=== PATIENT | female | born 1980 | race Caucasian/White ===

== ENCOUNTER 2017-01-26 19:38 | Emergency (ER) | payer MEDICAID ==
[2017-01-26 20:46] LABS: BASOPHIL# 0.2 X 10^3uL (0.0-0.1); BASOPHILS 1.9 % (0.0-2.0); EOSINOPHILS 1.9 % (0.0-6.0); EOSINOPHILS# 0.2 X 10^3uL (0.0-0.4); HEMATOCRIT 42.1 % (36.0-48.0); HEMOGLOBIN 14.5 g/dL (12.0-16.0); LYMPHOCYTES 23.4 % (20.0-40.0); LYMPHOCYTES# 2.5 X 10^3uL (0.8-3.8); MEAN CELL VOLUME 74.8 fL (80.0-100.0); MEAN CORPUS. HGB CONCENTRATION 34.5 g/dL (32.0-36.0); MEAN CORPUSCULAR HEMOGLOBIN 25.8 pg (29.0-35.0); MEAN PLATELET VOLUME 8.4 fL (7.4-10.4); MONOCYTES 3.4 % (2.0-10.0); MONOCYTES# 0.4 X 10^3uL (0.2-1.0); NEUTROPHILS 69.4 % (54.0-75.0); NEUTROPHILS# 7.4 X 10^3uL (2.6-6.7); PLATELET COUNT 271 X 10^3uL (130-440); RED BLOOD COUNT 5.62 X 10^6uL (4.20-6.10); RED CELL DISTRIBUTION WIDTH 13.2 % (11.5-14.5); WHITE BLOOD COUNT 10.7 X 10^3uL (3.9-10.7)
[2017-01-26] MEDS ORDERED: HYDROcodone/APAP 5/325 MG 1 TAB TABLET PO ONE (20:49)
[2017-01-26 21:00] LABS: BLOOD UREA NITROGEN 29 mg/dL (7-17); C-REACTIVE PROTEIN 7.9 mg/L (<10.0); CALCIUM 8.6 mg/dL (8.4-10.2); CHLORIDE 106 mmol/L (98-107); CREATININE 1.7 mg/dL (0.5-1.0); EST GLOMERULAR FILTRATION RATE 37 mL/min; GLUCOSE 138 mg/dL (70-100); POTASSIUM 3.6 mmol/L (3.5-5.1); SODIUM 143 mmol/L (137-145)
[2017-01-26 21:09] LABS: TROPONIN I < 0.012 ng/mL (0.00-0.034)
--- NOTE | 2017-01-26 22:13 | ER PHYSICIAN DOCUMENTATION ---
Physician Documentation [facility] Name:Yanci Carranza Age:36 yrs Sex:Female :1980 Arrival Date:01/26/2017 Time:19:38 Bed2 Private MD: Irvin Jung Disposition: 01/26/17 21:27 Discharged to Home/Self Care. Impression: Jaw Pain. - Condition is Fair. - Discharge Instructions: ABSCESS Dental - DENTAL ABSCESS. - Prescriptions for penicillin V potassium 500 mg Oral tablet - take 1 tablet by ORAL route 3 times per day for 10 days; 30 tablet. Hydrocodone- Acetaminophen 5-325 mg Oral Tablet - take 1 tablet by ORAL route every 6 hours As needed; 20 tablet. - Medical Reconciliation form form. - Follow up: Private Physician; When: 2 - 3 days; Reason: Recheck today's complaints, Continuance of care. - Problem is new. - Symptoms have improved. HPI: 01/26 21:22 This 36 yrs old Female presents to ER via Walk In with complaints of Jaw Pain sc - RIGHT SIDE. 21:22 The patient presents with pain, that is acute. The problem is located in the right jaw. sc 21:24 Onset: The symptom(s)/episode began/occurred 10 day(s) ago. Duration: The symptoms are sc continuous. Modifying factors: The symptoms are alleviated by over the counter medications, NSAIDs. Associated signs and symptoms: The patient has no apparent associated signs or symptoms. Severity of symptoms: At their worst the symptoms were moderate. Historical: - Allergies: No known drug Allergies; - PMHx: GERD; - Tetanus: < 10 years. - Ebola Screening: : Patient negative for fever greater than or equal to 101.5 degrees Fahrenheit, and additional compatible Ebola Virus Disease symptoms. Patient denies exposure to infectious person. Patient denies travel to an Ebola-affected area in the 21 days before illness onset. No symptoms or risks identified at this time. . - Immunization history: Flu Vaccine < 1 year. - Social history: Smoking status: Patient states was never smoker of tobacco. ROS: 21:24 Constitutional: Negative for fever, chills, and weight loss. sc Eyes: Negative for injury, pain, redness, and discharge. Neck: Negative for injury, pain, and swelling. Cardiovascular: Negative for chest pain, palpitations, and edema. Respiratory: Negative for shortness of breath, cough, wheezing, and pleuritic chest pain. Abdomen/GI: Negative for abdominal pain, nausea, vomiting, diarrhea, and constipation. Back: Negative for injury and pain. MS/Extremity: Negative for injury and deformity. Skin: Negative for injury, rash, and discoloration. 21:24 Neuro: Negative for headache, weakness, numbness, tingling, and seizure. sc 21:24 ENT: Positive for Negative for injury or acute deformity. Exam: Constitutional: This is a well developed, well nourished patient who is awake, alert, and in no acute distress. Head/Face: Normocephalic, atraumatic. Eyes: Pupils equal round and reactive to light, extra-ocular motions intact. Lids and lashes normal. Conjunctiva and sclera are non-icteric and not injected. Cornea within normal limits. Periorbital areas with no swelling, redness, or edema. Chest/axilla: Normal chest wall appearance and motion. Nontender with no deformity. No lesions are appreciated. Cardiovascular: Regular rate and rhythm with a normal S1 and S2. No gallops, murmurs, or rubs. Normal PMI, no JVD. No pulse deficits. Respiratory: Lungs have equal breath sounds bilaterally, clear to auscultation and percussion. No rales, rhonchi or wheezes noted. No increased work of breathing, no retractions or nasal flaring. Abdomen/GI: Soft, non-tender, with normal bowel sounds. No distension or tympany. No guarding or rebound. No evidence of tenderness throughout. 21:25 Back: No spinal tenderness. No costovertebral tenderness. Full range of motion. sc 21:25 ENT: Mouth: is normal, Dental exam: normal, no acute changes, dental caries, that is mild, diffusely, right brenda nt to palp, tmj nl, pain at angle, deep bone pain at times. Vital Signs: 19:47 BP 157 / 100; Pulse 92; Resp 19; Temp 98; Pulse Ox 96% on R/A; Weight 90.72 kg (R); bw2 Height 5 ft. 5 in. (165.10 cm); Pain 2/10; 19:47 Body Mass Index 33.28 (90.72 kg, 165.10 cm) bw2 MDM: 19:56 Patient medically screened. mt 21:25 Differential diagnosis: dental caries, dental abscess, pericoronitis. Data reviewed: mt vital signs, nurses notes, lab test result(s), and as a result, I will discharge patient. Counseling: I had a detailed discussion with the patient and/or guardian regarding: the historical points, exam findings, and any diagnostic results supporting the discharge/admit diagnosis, lab results, the need for outpatient follow up, for a referral to a specialist, rec dental x-rays next to rule out deep dental abscess. 01/26 20:57 Order name: CBC AUTO DIF, MDIF/RMOR IF IND; Complete Time: 21:13 EDNY 01/26 21:12 Interpretation: Normal Except: MEAN CELL VOLUME 74.8. mt 01/26 21:10 Order name: BASIC METABOLIC PANEL; Complete Time: 21:13 EDNY 01/26 21:13 Interpretation: Abnormal: BLOOD UREA NITROGEN 29; CREATININE 1.7. mt 01/26 21:10 Order name: C-REACTIVE PROTEIN; Complete Time: 21:13 EDNY 01/26 21:13 Interpretation: Normal. mt 01/26 21:10 Order name: TROPONIN I; Complete Time: 21:13 EDNY 01/26 21:13 Interpretation: Normal. mt Dispensed Medications: 20:37 Drug: HYDROcodone-acetaminophen 5 mg-325 mg 1 tabs; Route: PO; bw2 20:45 Follow up: Response: Pain is decreased 2 Signatures: Irvin Justin MD MD mt marilu flores Beth bw2
--- NOTE | 2017-01-26 22:13 | ER NURSING DOCUMENTATION ---
Nurse's Notes [facility] Name:Yanci Carranza Age:36 yrs Sex:Female :1980 Arrival Date:01/26/2017 Time:19:38 Bed2 Private MD: Diagnosis:Jaw Pain Presentation: 01/26 19:44 Presenting complaint: Patient states: right sided jaw pain x 1 week. pt states her jaw bw2 is also popping. skin is nor tender to the touch. Transition of care: patient was not received from another setting of care. 19:44 Acuity: JORGE 4 bw2 19:44 Method Of Arrival: Walk In 2 20:41 Acuity: OJRGE 3 bw2 Triage Assessment: 19:47 General: Appears in no apparent distress, Behavior is appropriate for age. Pain: bw2 Complains of pain in right side jaw. Historical: - Allergies: No known drug Allergies; - PMHx: GERD; - Tetanus: < 10 years. - Ebola Screening: : Patient negative for fever greater than or equal to 101.5 degrees Fahrenheit, and additional compatible Ebola Virus Disease symptoms. Patient denies exposure to infectious person. Patient denies travel to an Ebola-affected area in the 21 days before illness onset. No symptoms or risks identified at this time. . - Immunization history: Flu Vaccine < 1 year. - Social history: Smoking status: Patient states was never smoker of tobacco. Screenin:58 Infectious Disease Risk None. Abuse screen: Denies threats or abuse. Denies injuries bw2 from another. Nutritional screening: No deficits noted. Assessment: 19:58 See Triage Assessment done by same RN. bw2 Vital Signs: 19:47 BP 157 / 100; Pulse 92; Resp 19; Temp 98; Pulse Ox 96% on R/A; Weight 90.72 kg (R); bw2 Height 5 ft. 5 in. (165.10 cm); Pain 2/10; 19:47 Body Mass Index 33.28 (90.72 kg, 165.10 cm) bw2 ED Course: 19:38 Patient arrived in ED. jt 19:44 Talisha Paul is Primary Nurse. bw2 19:45 Triage completed. bw2 19:56 Irvin Justin MD is Attending Physician. sc 19:59 Valuables Remains with patient. bw2 Administered Medications: 20:37 Drug: HYDROcodone-acetaminophen 5 mg-325 mg 1 tabs; Route: PO; bw2 20:45 Follow up: Response: Pain is decreased bw2 Outcome: 21:27 Discharge ordered by . osvaldo 22:12 Discharged to home mv 22:12 Condition: good 22:12 Discharge Assessment: Patient awake, alert and oriented x 3. No cognitive and/or functional deficits noted. Patient verbalized understanding of disposition instructions. 22:12 Discharge instructions given to patient, Instructed on discharge instructions, follow up and referral plans. medication usage, no drinking with medication, Demonstrated understanding of Prescriptions given X 2. 22:13 Patient left the ED. mv Signatures: Irvin Justin MD MD sc Tennant, Joanne jt vogel, margaux mv Wisely, Beth bw2
[2017-01-26] MEDS ORDERED: HEPARIN SOD PORCINE 5,000 UNITS/ML VIAL ONE (22:21)
== END 2017-01-26 22:13 | disposition home or self-care (01) ==
LOC: ER 19:38
DX: R68.84 Jaw pain (principal); K02.9 Dental caries, unspecified
CPT/HCPCS: 80048; 84484; 85025; 86140; 99283; J1644

== ENCOUNTER 2017-03-14 14:42 | Emergency (ER) | payer MEDICAID ==
[2017-03-14] MEDS ORDERED: LIDOCAINE/EPI 2% 1:200,000 10 ML VIAL ONE (15:12)
[2017-03-14] MEDS ORDERED: INDOMETHACIN 25 MG CAPSULE PO ONE (15:51)
[2017-03-14 15:58] LABS: CRYSTAL IDENTIFICATION NONE SEEN (NONE SEEN)
[2017-03-14 16:09] LABS: FLUID COLOR TUBE 1 PINK (COLORLESS)
--- NOTE | 2017-03-14 16:27 | ER NURSING DOCUMENTATION ---
Nurse's Notes [facility] Name:Yanci Carranza Age:36 yrs Sex:Female :1980 Arrival Date:03/14/2017 Time:14:42 Bed6 Private MD: Diagnosis:Gout Presentation: 03/14 14:48 Acuity: JORGE 3 tg 15:15 Presenting complaint: Patient states: Pain in right knee, began yesterday. No trauma. tg Transition of care: patient was not received from another setting of care. 15:15 Method Of Arrival: Private Vehicle tg Triage Assessment: 15:07 General: Appears in no apparent distress, Behavior is cooperative, pleasant. Pain: tg Complains of pain in right knee. Cardiovascular: Capillary refill < 3 seconds in right toes. Respiratory: Respiratory effort is even, unlabored. Derm: Skin is pink, warm & dry. Musculoskeletal: Range of motion intact in all extremities. right knee is warm, reddened. Historical: - Allergies: No known drug Allergies; - Home Meds: 1. None - PMHx: polycistic kidney disease; GOUT; - PSHx: bunions; - Tetanus: unknown. - Ebola Screening: : Patient negative for fever greater than or equal to 101.5 degrees Fahrenheit, and additional compatible Ebola Virus Disease symptoms. Patient denies exposure to infectious person. Patient denies travel to an Ebola-affected area in the 21 days before illness onset. No symptoms or risks identified at this time. . - Immunization history: Flu Vaccine unknown. - Social history: Smoking status: Patient states was never smoker of tobacco. Screenin:13 Infectious Disease Risk Unable to Obtain. Abuse screen: Denies threats or abuse. Denies tg injuries from another. Nutritional screening: No deficits noted. Vital Signs: 15:08 BP 139 / 99; Pulse 58; Resp 16; Temp 98.9(O); Pulse Ox 98% on R/A; Pain 5/10; tg ED Course: 14:47 Patient arrived in ED. dp 14:48 Triage completed. tg 15:03 Braulio Laird, RN is Primary Nurse. tg 15:11 Arm band placed on. tg 15:11 Assist Provider Assist provider with aspiration of right knee using 18 gauge needle, tg Lidocaine, fluid removed was clear, bloody, Specimen sent to lab. Removed 2 ml's of fluid Set up for procedure. Performed by Tanner Carrera MD Dressed with band aid, Patient tolerated well. 15:12 Tanner Carrera MD is Attending Physician. ky 15:13 Valuables Remains with patient. tg Administered Medications: 15:05 Drug: Lidocaine-Epinephrine -2 % (1:100,000) 10 ml; {Note: administered by dr carrera.} tg Route: Infiltration; Site: affected area; 15:15 Follow up: Response: No adverse reaction tg 15:40 CANCELLED (Other Intervention Used): Indocin Sustained Release Capsule 75 mg PO once tg 15:43 Drug: Indomethacin 50 mg; Route: PO; tg 16:26 Follow up: Response: No adverse reaction tg Outcome: 16:09 Discharge ordered by . ky 16:26 Discharged to home ambulatory. tg 16:26 Condition: stable 16:26 Discharge Assessment: Patient awake and alert. 16:26 Instructed on discharge instructions, follow up and referral plans. medication usage, Prescriptions given X 1. 16:26 Patient left the ED. tg 03/15 12:29 Discharge F/U Call: Spoke with: patient. Overall Care on a scale of 1-10 with 10 tg being the best care, you rate our care as: Other comments: Knee doing better today. Appreciative of care. Signatures: Braulio Laird RN RN Tanner Kaplan MD MD jm Palacios, Denise dp
--- NOTE | 2017-03-14 16:27 | ER PHYSICIAN DOCUMENTATION ---
Physician Documentation [facility] [place] Name:Yanci Carranza Age:36 yrs Sex:Female :1980 Arrival Date:03/14/2017 Time:14:42 Bed6 Private MD: Tanner Castro Disposition: 03/14/17 16:09 Discharged to Home/Self Care. Impression: Gout. - Condition is Good. - Discharge Instructions: GOUTY ARTHRITIS. - Prescriptions for Colchicine- Probenecid 0.5-500 mg Oral Tablet - take 1 tablet by ORAL route every 1 hour up to 3 hours; 3 tablet. - Medical Reconciliation form form. - Follow up: Private Physician; When: As needed; Reason: Continuance of care. - Problem is new. - Symptoms have improved. HPI: 03/14 16:22 This 36 yrs old Female presents to ER via Private Vehicle with complaints of jm Knee Pain - RIGHT. 16:22 The patient presents with pain, that is acute, swelling. The complaints affect the jm right knee. Associated signs and symptoms: Pertinent negatives fever. Pt w hx of gout in the past. Pt presentw R knee swelling, pain, and warmth. . Historical: - Allergies: No known drug Allergies; - Home Meds: 1. None - PMHx: polycistic kidney disease; GOUT; - PSHx: bunions; - Tetanus: unknown. - Ebola Screening: : Patient negative for fever greater than or equal to 101.5 degrees Fahrenheit, and additional compatible Ebola Virus Disease symptoms. Patient denies exposure to infectious person. Patient denies travel to an Ebola-affected area in the 21 days before illness onset. No symptoms or risks identified at this time. . - Immunization history: Flu Vaccine unknown. - Social history: Smoking status: Patient states was never smoker of tobacco. ROS: 16:24 MS/extremity: Positive for pain, swelling, tenderness, warmth. 16:24 Skin: Positive for swelling, Negative for cellulitis, erythema. Exam: 16:24 Constitutional: The patient appears alert, awake, obese. 16:24 Cardiovascular: Rate: normal, Rhythm: regular. 16:24 Musculoskeletal/extremity: Pulses: are normal with no appreciated deficits, Sensation intact. 16:24 Skin: Appearance: Temperature: hot, R knee, cellulitis, is not appreciated, no rash present. 16:24 Neuro: Mentation: is normal, Memory: is normal. 16:24 Psych: Behavior/mood is pleasant, cooperative, Affect is calm. Vital Signs: 15:08 BP 139 / 99; Pulse 58; Resp 16; Temp 98.9(O); Pulse Ox 98% on R/A; Pain 5/10; tg Procedures: 16:25 Joint Treatment: Aspiration of right knee using 18 gauge needle, Removed clear fluid, jm Dressed with band aid, Patient tolerated well. MDM: 14:53 Patient medically screened. jm 16:28 Differential diagnosis: gout vs septic joint. Data reviewed: vital signs. Data jm reviewed: vital signs, nurses notes, lab test result(s), and as a result, I will discharge patient. Counseling: I had a detailed discussion with the patient and/or guardian regarding: the historical points, exam findings, and any diagnostic results supporting the discharge/admit diagnosis, lab results, the need for outpatient follow up, with the patient's primary care provider, a orthopedic surgeon. ED course: diagnostic aspiration does not point to septic joint, so we will treat as gout and DC home. . 03/14 15:59 Order name: WBC COUNT, BODY FLUID EDMS 03/14 15:59 Order name: CRYSTAL IDENTIFICATION EDMS 03/14 16:08 Order name: BODY FLUID CULTURE/GRAM STAIN EDMS Dispensed Medications: 15:05 Drug: Lidocaine-Epinephrine -2 % (1:100,000) 10 ml; {Note: administered by dr carrera.} tg Route: Infiltration; Site: affected area; 15:15 Follow up: Response: No adverse reaction tg 15:40 CANCELLED (Other Intervention Used): Indocin Sustained Release Capsule 75 mg PO once tg 15:43 Drug: Indomethacin 50 mg; Route: PO; tg 16:26 Follow up: Response: No adverse reaction tg Signatures: Braulio Laird RN RN tg Tanner Carrera MD MD jm
== END 2017-03-14 16:27 | disposition home or self-care (01) ==
LOC: ER 14:42
DX: M10.9 Gout, unspecified (principal); M79.89 Other specified soft tissue disorders; M25.461 Effusion, right knee
CPT/HCPCS: 87070; 87205; 89051; 89060; 99284